=== PATIENT | female | born 1980 | race Two or more races ===

== ENCOUNTER 2020-03-30 16:32 | Emergency (ER) | payer OTHER ==
[~2020-03-30] VITALS: Ht 147.3 cm; Wt 55.3 kg
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
[2020-03-30 17:38] LABS: BASOPHILS % (AUTO) 1.2 % (0.0-2.0); EOSINOPHILS % (AUTO) 1.8 % (0.0-6.0); HEMATOCRIT 39 % (33-45); HEMOGLOBIN 12.7 g/dL (11.5-14.8); LYMPHOCYTES # (AUTO) 1.5 /CMM (0.8-4.8); LYMPHOCYTES % (AUTO) 36.3 % (20.0-44.0); MEAN CORPUSCULAR HGB CONC 33 g/dl (31.0-36.0); MEAN CORPUSCULAR VOLUME 89 fL (82-100); MONOCYTES # (AUTO) 0.5 /CMM (0.1-1.30); MONOCYTES % (AUTO) 11.9 % (2.0-12.0); NEUTROPHILS % (AUTO) 48.8 % (43.0-81.0); PLATELET COUNT (AUTO) 197 /CMM (150-450); RED BLOOD CELL COUNT(AUTO) 4.37 MIL/uL (4.0-5.2)
[2020-03-30 18:06] LABS: ALANINE AMINOTRANSFERASE 21 U/L (12-78); ALBUMIN 3.6 g/dL (3.4-5.0); ALCOHOL, BLOOD < 3 mg/dL (0-0); ALKALINE PHOSPHATASE 80 U/L (46-116); ASPARTATE AMINOTRANSFERASE 24 U/L (15-37); BILIRUBIN,DIRECT 0.1 mg/dL (0.0-0.2); BILIRUBIN,TOTAL 0.5 mg/dL (0.2-1.0); CALCIUM, SERUM 8.3 mg/dL (8.5-10.1); CARBON DIOXIDE 26 mmol/L (21-32); CHLORIDE 105 mmol/L (98-107); CREATININE 0.5 mg/dL (0.6-1.3); GLUCOSE 88 mg/dL (74-106); POTASSIUM 3.7 mmol/L (3.5-5.1); SALICYLATE 0.5 mg/dL (2.8-20.0); SODIUM SERUM 140 mmol/L (136-145); TOTAL PROTEIN, SERUM 7.3 g/dL (6.4-8.2); UREA NITROGEN, BLOOD 5 mg/dL (7-18)
[2020-03-30 18:07] LABS: ACETAMINOPHEN < 2 ug/ml (10-30)
--- NOTE | 2020-03-30 18:17 | NUR ---
URINE SAMPLE COLLECTED VIA STRAIGHT CATHETER, SAMPLE SENT TO LAB.
[2020-03-30 18:54] LABS: APPEARANCE,URINE CLEAR (CLEAR); BILIRUBIN,URINE NEGATIVE (NEGATIVE); BLOOD, URINE TRACE-INTA Ery/uL (NEGATIVE); COLOR,URINE YELLOW (YELLOW); KETONES,URINE NEGATIVE (NEGATIVE); LEUKOCYTE ESTERASE ,URINE NEGATIVE (NEGATIVE); NITRITE, URINE NEGATIVE (NEGATIVE); PH,URINE 6.5 (5.0-8.0); PROTEIN,URINE NEGATIVE (NEGATIVE); UGLUCOSE NEGATIVE (NEGATIVE); UROBILINOGEN,URINE 0.2 EU/dL (0.2)
[2020-03-30 19:06] LABS: BACTERIA,URINE None seen /HPF (None Seen); SQUAMOUS EPITHELIAL CELL,UR 0-2 /HPF (None Seen); WBC,URINE 0-2 /HPF (0-3)
--- NOTE | 2020-03-30 19:27 | NUR ---
REC'D CALL FROM RADIOLOGY, PT TOO AGITATED FOR CT SCAN. NILE TOPETE AWARE
[2020-03-30] MEDS ORDERED: LORAZEPAM INJ 2 MG/ML VIAL IV ONE (19:30)
[2020-03-30] MEDS ORDERED: LORAZEPAM INJ 2 MG/ML VIAL ONE (19:36)
--- NOTE | 2020-03-30 19:45 | NUR ---
PT MEDICATED ORDERED
--- NOTE | 2020-03-30 21:12 | NUR ---
Patient discharged to home in stable condition. Written and verbal after care instructions given. Patient verbalizes understanding of instruction. IV removed. Catheter intact and site benign. Pressure and 4x4 applied to site. No bleeding noted.
--- NOTE | 2020-03-30 21:13 | NUR ---
PT STS SHE'S NOT HOMELESS & SHE HAS A PLACE TO GO.
[2020-03-30 21:14] VITALS: BP 102/65
== END 2020-03-30 21:15 | disposition home or self-care (01) ==
LOC: ER 16:35
DX: Z02.89 Encounter for other administrative examinations (principal); R45.1 Restlessness and agitation
CPT/HCPCS: 36415; 80048; 80076; 80305; 80307; 80329; 81001; 82962; 84702; 84703; 85025; 96374; 99283; G0480; J2060; L0172; 81000-TC